=== PATIENT | female | born 1995 | race African-American/Black ===

== ENCOUNTER 2016-04-29 20:10 | Emergency (ER) | payer OTHER ==
[~2016-04-29] VITALS: Ht 175.3 cm; Wt 52.0 kg
[2016-04-29 20:32] VITALS: BP 115/74; PULSE 76; RESP 18; TEMP 98.7; O2SAT 100
[2016-04-29 20:54] VITALS: BP 115/74; PULSE 76; RESP 18; TEMP 98.7; O2SAT 100
[2016-04-29] MEDS ORDERED: KETOROLAC TROMETHAMINE 60 MG/2 ML (IM) VIAL IM ONE (22:15)
--- NOTE | 2016-04-29 22:16 | PD ---
HPI Chief Complaint: Injury Time Seen by Provider: 21:45 Travel History International Travel<30 days: No Contact w/Intl Traveler<30days: No Traveled to known affect area: No History of Present Illness HPI Patient is a 20-year-old female with chief complaint of left lateral ankle pain. Present for several hours. She slipped while working at [employer] and the lateral left ankle hit into a metal container. She states that cut through her shoe and sock she has a mild abrasion. No active bleeding. Last tetanus vaccine 3-4 years prior. She has been out of bear weight but it is painful to do so. Pain does not radiate. He denies any pain in the foot, calf or knee. She didn't hit her head or lose consciousness. She denies current . No attempts at palliation. [facility] Past Medical History Medical History: Denies Significant Hx Diminished Hearing: No Immunizations Current: Yes Tetanus Vaccination: < 5 Years Influenza Vaccination: No ?: Not LMP: 04/08/16 Past Surgical History Other Surgery: Yes (KELOIDS) Social History Alcohol Use: No Tobacco Use: No Substance Use: No Allergies-Medications (Allergen,Severity, Reaction): Coded Allergies: No Known Allergies (Unverified , 04/29/16) Reported Meds & Prescriptions Reported Meds & Active Scripts Active Naproxen 500 Mg Tab 500 Mg PO BID Review of Systems Musculoskeletal: Positive: Other (see the history of present illness) Skin: Positive Other (abrasion per history of present illness) Neurologic: No: Weakness, Focal Abnormalities, Paresthesia, Sensory Disturbance Physical Exam Narrative GENERAL: Well-developed and well-nourished adult female in no acute distress. SKIN: Warm and dry. Good turgor without tenting. HEAD: Normocephalic and atraumatic. EYES: PERRL bilaterally, 5mm. EOMI bilaterally. No injection or icterus present. No proptosis. Lids without edema or erythema. CARDIOVASCULAR: Regular rate and rhythm without murmurs, rubs, clicks or gallops. Dorsalis pedis and posterior tibial pulses 2+ bilaterally. Capillary refill less than 2 seconds distal tip of all toes of left foot. RESPIRATORY: Clear to auscultation bilaterally with symmetrical rise and fall, no distress or use of accessory muscles. MUSCULOSKELETAL: Lateral malleolus of the left ankle has mild edema with point tenderness. No crepitus or step-offs. No pain with Palpation of the medial malleolus, mid to distal tib-fib, left knee, navicular or fifth metatarsal of the left lower extremity. There is a 3 mm very superficial abrasion overlying the lateral malleolus of the left ankle without any active bleeding or laceration. Patient has normal range of motion in flexion and extension of the left ankle and freely move all 5 toes of left foot. No pain with palpation of the left knee and normal range of motion in same. Patient freely moving all four extremities spontaneously. Extremities without clubbing or cyanosis. No obvious deformities. NEUROLOGIC: CN II-XII grossly intact. Awake and alert. Strength 5/5 left knee flexion, knee extension, plantar and dorsiflexion. Sensation intact distal tip of all toes of left foot. Normal speech. PSYCHIATRIC: Appropriate mood and affect; insight and judgment normal. Data Data Last Documented VS Vital Signs Date Time Temp Pulse Resp B/P Pulse Ox O2 Delivery O2 Flow Rate FiO2 04/29/16 20:54 98.7 76 18 115/74 100 Orders Ankle, Complete ([id number]) (04/29/16 22:01) Ice/Cold Pack (04/29/16 22:01) Ketorolac Inj (Toradol Inj) (04/29/16 22:15) ^ Wound Care (04/29/16 22:30) Crutches (04/29/16 22:33) Splint Or Brace Apply/Monitor (04/29/16 22:33) MDM Medical Decision Making Medical Screen Exam Complete: Yes Emergency Medical Condition: Yes Differential Diagnosis Lateral malleolar contusion versus sprain versus ankle fracture versus abrasion Narrative Course Patient is a 20-year-old female who had a slip and fall at work several hours prior to exam. She had lateral left ankle against a metal bin while slipping. Is a very minimal abrasion that is not bleeding, no laceration or puncture wound. There is minimal edema and point tenderness over the lateral malleolus. She is neurovascularly intact. No obvious deformity. Patient was given Toradol and ice and ordered x-ray of the ankle which showed no fracture or subluxations by my read. The patient is able to bear weight with only mild difficulty. She is given Jose M wrap and crutches. I recommended staying out of work for a few days however she states she is off on Monday and would prefer to work tomorrow. As she is able to bear weight there is no fracture I think as long as she has no excessive standing or walking and can take rests and apply ice when needed that she can work. Informed her that if pain is worse or has pain with weightbearing should return home early and follow-up with the [facility]. doctor on Monday.See discharge paperwork for further instructions. The plan was discussed with the patient who acknowledged their understanding and agreement. Reinforced the follow-up with primary care is critically important. Patient instructed on emergent conditions that should prompt return to ED. Diagnosis Primary Impression: Sprain of left ankle Qualified Code: S93.402A - Sprain of left ankle, unspecified ligament, initial encounter Additional Impressions: Ankle contusion Qualified Code: S90.02XA - Contusion of left ankle, initial encounter Abrasion Patient Instructions: Abrasion (ED), Ankle Sprain (ED), Ankle Sprain Exercises (GEN), Contusion in Adults (ED), General Instructions Additional Instructions: Take medications as prescribed Apply ice every 1 to 2 hours as needed for pain Avoid maneuvers that aggravate pain Keep JOSE M bandage on while being active or using extremity Use crutches when walking to avoid pressure on joint Elevate when at rest Be aware that may take several weeks for sprains to heal fully Follow-up with PCP or workman's comp provider in 2-3 days Return to the ED for any acute worsening of symptoms Med/Other Pt SpecificInfo: Prescription(s) given Scripts Naproxen 500 Mg [id number] Mg PO BID #10 TAB Prov:Curtis Delaney MD 04/29/16 Disposition: 01 DISCHARGE HOME Condition: Stable Brandon Jaffe III Apr 29, 2016 22:16
[2016-04-29] MEDS ORDERED: NAPR500T PO (22:33)
--- NOTE | 2016-04-29 22:56 | RADHPO ---
EXAM DATE/TIME: 04/29/2016 22:20 [place] COMPARISON: No previous studies available for comparison. INDICATIONS : Left lateral ankle pain post slip and fall at work. MEDICAL HISTORY : None. SURGICAL HISTORY : None. ENCOUNTER: Initial ACUITY: 1 day PAIN SCORE: 8/10 LOCATION: Left lateral ankle FINDINGS: Three view exam was performed of the left ankle. The bony structures are in normal alignment. No ev idence of fracture, dislocation, or soft tissue swelling. The ankle mortise is intact. No radiopaqu e foreign bodies are seen. Bony mineralization is normal. CONCLUSION: Unremarkable examination of the left ankle. Emanuel Sandoval MD on April 29, 2016 at 22:53 Board Certified Radiologist. This report was verified electronically.
== END 2016-04-29 23:04 | disposition home or self-care (01) ==
LOC: PHED 20:10 → PHEFT 23:04
DX: S93.402A Sprain of unspecified ligament of left ankle, initial encounter (principal); S90.02XA Contusion of left ankle, initial encounter; W01.0XXA Fall on same level from slipping, tripping and stumbling without subsequent striking against object, initial encounter; Y92.511 Restaurant or cafe as the place of occurrence of the external cause; Y99.0 Civilian activity done for income or pay
CPT/HCPCS: 73610; 96372; 99283; E0113; J1885